=== PATIENT | male | born 1985 | race Caucasian/White ===

== ENCOUNTER 2019-09-24 02:29 | Emergency (ER) | payer SELFPAY ==
[2019-09-24 02:41] VITALS: BP 141/108; PULSE 100; RESP 19; TEMP 36.9; O2SAT 97; BMI 26.4
--- NOTE | 2019-09-24 02:46 | PC.NURSE ---
Reports pain in lower r flank started suddenly, states pain wraps around to front and into testicle. has had 3 episodes of emesis since start of pain. Denies difficulty urinating.
--- NOTE | 2019-09-24 02:57 | DI.CT.S_ITS ---
PROCEDURE: CT KIDNEY URETER BLADDER (KUB) INDICATIONS: right flank pain TECHNIQUE: Noncontrast 5 mm thick sections acquired from the diaphragms to the symphysis. 5 mm thick coronal and sagittal reformats were then performed. For radiation dose reduction, the following was used: automated exposure control, adjustment of mA and/or kV according to patient size. COMPARISON: None. FINDINGS: Image quality: Excellent. Lung bases: Lung bases are clear. Heart size is normal. Urinary system: Both kidneys are normal in size. Right UPJ obstructing calculus measuring 1.3 cm, (2/44). Mild to moderate right-sided hydronephrosis. A few additional nonobstructing punctate calculi bilaterally. Both ureters otherwise appear non-dilated throughout their expected courses. Bladder wall thickness is normal; no calcified bladder stones. Other solid organs: Liver is normal in size. Gallbladder is unremarkable. Pancreas is normal in contours. Spleen is normal in size. No adrenal nodules. Peritoneum and bowel: Unenhanced bowel loops demonstrate normal wall thickness and caliber. Appendix is normal. No free fluid or air. Nodes and vessels: No retroperitoneal or mesenteric adenopathy by size criteria. Aorta and inferior vena cava are normal in caliber. Abdominal wall: No ventral hernias. Pelvis: No free pelvic fluid. No inguinal hernias or adenopathy. Bones: No suspicious bony lesions. Bilateral L5 pars defect with several millimeters of anterolisthesis of L5 on S1. No vertebral body compression fractures. IMPRESSION: 1. Obstructing calculus at the right ureteropelvic junction. Mild to moderate right-sided hydronephrosis. 2. A few additional nonobstructing punctate kidney stones. This report is concordant with the overnight preliminary interpretation. Dictated by: Yuniel Stuart M.D. on 09/24/2019 at 8:11 Approved by: Yuniel Stuart M.D. on 09/24/2019 at 8:16
[2019-09-24] MEDS: ONDANSETRON 4 MG/2 ML INJ IV ×2 (03:05→03:45)
[2019-09-24] MEDS: SODIUM CHLORIDE 0.9% 1,000 ML 1000 ML IV (03:05)
[2019-09-24] MEDS: KETOROLAC 60 MG/2 ML VIAL 30 MG IV (03:05)
[2019-09-24 03:06] LABS: Add Manual Diff / Slide Review NO; Basophils Absolute Auto 0 /uL (0-100); Basophils Percent Auto 0.4 % (0-2); Eosinophils Absolute Auto 0 /uL (0-450); Eosinophils Percent Auto 0.5 % (2-4); Hematocrit 46.3 % (41-53); Hemoglobin 15.6 g/dL (13.5-17.5); Lymphocytes Absolute Auto 3400 /uL (1100-4500); Lymphocytes Percent Auto 46.7 % (25-40); Mean Corpuscular HGB Conc 33.6 % (30-36); Mean Corpuscular Hemoglobin 27.6 PG (26-34); Mean Corpuscular Volume 82.1 fL (80-100); Monocytes Absolute Auto 1000 /uL (0-900); Monocytes Percent Auto 13.3 % (3-14); Neutrophils Absolute Auto 2900 /uL (1500-7000); Neutrophils Percent Auto 39.1 % (50-75); Platelet Count 198 X10^3/uL (150-400); Red Blood Cell Count 5.64 X10^6/uL (4.5-5.9); Red Cell Distribution Width 12.5 % (11.6-14.8); White Blood Cell Count 7.3 X10^3/uL (4.5-11.0)
[2019-09-24 03:11] LABS: Alanine Aminotransferase 29 IU/L (<50); Albumin 4.3 g/dL (3.5-5.0); Albumin Globulin Ratio 1.4 (1.0-2.8); Alkaline Phosphatase 64 U/L (38-126); Aspartate Aminotransferase 22 IU/L (17-59); BUN Creatinine Ratio 16.3 (6-22); Bilirubin Total 0.7 mg/dL (0.2-1.3); Blood Urea Nitrogen 13 mg/dL (9-20); Calcium 9.2 mg/dL (8.4-10.2); Carbon Dioxide 28 mmol/L (22-32); Chloride 101 mmol/L (98-107); Estimated Glomerular Filt Rate > 60.0 mL/min (>60); Globulin 3.1 g/dL (1.7-4.1); Glucose 121 mg/dL (70-100); HEMOLYSIS < 15 (0-50); Lipase 96 U/L (23-300); Potassium 3.7 mmol/L (3.4-5.1); Sodium 138 mmol/L (137-145); Total Protein 7.4 g/dL (6.3-8.2)
--- NOTE | 2019-09-24 03:22 | ED.MALEGU ---
HPI - Male Genitourinary General Chief complaint: Urogenital-Male Stated complaint: severe pain in lower right back, testicle pain Time Seen by Provider: 09/24/19 02:45 Source: patient Mode of arrival: Ambulatory History of Present Illness HPI Narrative: Patient is a 34-year-old male who presents with sudden onset of right-sided flank pain radiating to his groin. He said it will come from asleep. It is relatively constant but does get significantly worse. He denies any blood in his urine. He feels nauseous he has vomited a few times. No prior history of kidney stone. He was doing well earlier today he says this came on unexpectedly. No trauma or injury to testicle. He really is complaining of right-sided flank pain. MD Complaint: testicle pain (Right side) Location: right flank Related Data Previous Rx's Medication Instructions Recorded ciprofloxacin HCl [Cipro] 500 mg PO Q12H #14 tab 09/24/19 hydrocodone-acetaminophen [[place]] 1 tab PO Q4H PRN #10 tab 09/24/19 ondansetron 4 mg PO Q8H PRN #10 tab 09/24/19 Allergies Allergy/AdvReac Type Severity Reaction Status Date / Time Penicillins Allergy Verified 09/24/19 03:06 Sulfa (Sulfonamide Allergy Verified 09/24/19 03:06 Antibiotics) Review of Systems Review of Systems Narrative: GENERAL: Denies chills, fatigue, malaise, fever, sweats, travel HEENT: Denies sinus pain, ear pain, sore throat, difficulty swallowing, neck pain RESPIRATORY: Denies dyspnea, cough, wheezing, hemoptysis, sputum. CARDIOVASCULAR: Denies chest pain, palpitations, orthopnea, edema GASTROINTESTINAL: Denies nausea, vomiting, abdominal pain, diarrhea, constipation, melena. : See HPI MUSCULOSKELETAL: Denies weakness, joint pain, or bony pain SKIN: No rash, no erythema, no pruritus NEUROLOGIC: Denies weakness, dizziness, headache, numbness, change in speech, confusion PSYCHIATRIC: No concerning psychosocial issues. 12 point review of systems is negative except for those stated above and HPI Patient History Medical History Patient denies medical problems (Acute) Social History Smoking Status: Never smoker Substance Use Type: does not use Exam Initial Vital Signs Initial Vital Signs: Vital Signs Temperature 98.4 F 09/24/19 02:41 Pulse Rate 100 H 09/24/19 02:41 Respiratory Rate 19 09/24/19 02:41 Blood Pressure 141/108 H 09/24/19 02:41 Pulse Oximetry 97 09/24/19 02:41 GENERAL: Well-appearing, well-nourished and in no acute distress. HEENT: Head atraumatic,EOMI, pupils reactive, face symmetric, moist mucous membranes CARDIOVASCULAR: Regular rate and rhythm without murmurs, rubs or gallops. RESPIRATORY: Breath sounds equal bilaterally, no wheezes rales or rhonchi. ABDOMEN: Soft, nontender. Normoactive bowel sounds all 4 quadrants. No guarding or rebound. : Right CVA tenderness EXTREMITIES: Normal range of motion, no clubbing or edema. Neurovascularly intact NEUROLOGICAL: Alert and oriented x4.Normal gait and speech. Cranial nerves II through XII grossly intact. SKIN: Warm, dry, no laceration, no petechiae, no rashes or lesions. Course Orders Ordered: ED Orders 09/24/19 02:44 Complete Blood Count AUTO DIFF Stat Comprehensive Metabolic Panel Stat Lipase Stat 09/24/19 02:57 CT kidney ureter bladder (KUB) Stat 09/24/19 05:45 Urinalysis and Microscopic Stat Urine Culture Stat Sodium Chloride (Normal Saline 0.9%) 1,000 mls @ 1,000 mls/hr IV CONT JOSELYN Last Infusion: 09/24/19 04:10 Dose: 0 mls/hr Documented by: Admin: 09/24/19 03:05 Dose: 1,000 mls/hr Documented by: ANEESH Discontinued Medications Hydromorphone HCl (Dilaudid) 1 mg IV NOW ONE Stop: 09/24/19 03:35 Last Admin: 09/24/19 03:45 Dose: 1 mg Documented by: STACIE Hydromorphone HCl (Dilaudid) 0.5 mg IV NOW ONE Stop: 09/24/19 04:49 Last Admin: 09/24/19 04:52 Dose: 0.5 mg Documented by: STACIE Lidocaine HCl 6.5 ml/ Sodium (Chloride) 56.5 mls @ 339 mls/hr IV NOW ONE Stop: 09/24/19 03:30 Last Infusion: 09/24/19 04:10 Dose: 0 mls/hr Documented by: Admin: 09/24/19 03:45 Dose: 339 mls/hr Documented by: STACIE Ketorolac Tromethamine (Toradol) 30 mg IV NOW ONE Stop: 09/24/19 02:58 Last Admin: 09/24/19 03:05 Dose: 30 mg Documented by: ANEESH Ondansetron HCl (Zofran) 4 mg IV NOW ONE Stop: 09/24/19 02:58 Last Admin: 09/24/19 03:05 Dose: 4 mg Documented by: ANEESH Ondansetron HCl (Zofran) 4 mg IV NOW ONE Stop: 09/24/19 03:30 Last Admin: 09/24/19 03:45 Dose: 4 mg Documented by: STACIE Consultations Consultation #1: Emily GUILLEN chemical radiation technician for Urology at [place]' updated patient's symptoms test results. Agrees with outpatient follow-up and pain control at this time. She is given patient's information and contact his info. CT images have been pushed in patient has been given a disc of CT. Time: 04:40 Vital Signs Vital signs: Vital Signs - 8 hr 09/24/19 02:41 Temperature 98.4 F Pulse Rate 100 H Respiratory Rate 19 Blood Pressure 141/108 H Pulse Oximetry 97 MDM - Male Genitourinary Lab Data Attestation: I reviewed the patient's lab results. Result diagrams: 09/24/19 02:44 09/24/19 02:44 Labs: Lab Results 09/24/19 09/24/19 09/24/19 Range/Units 02:44 02:44 05:45 WBC 7.3 (4.5-11.0) X10^3/uL RBC 5.64 (4.5-5.9) X10^6/uL Hgb 15.6 (13.5-17.5) g/dL Hct 46.3 (41-53) % MCV 82.1 (80-100) fL MCH 27.6 (26-34) PG MCHC 33.6 (30-36) % RDW 12.5 (11.6-14.8) % Plt Count 198 (150-400) X10^3/uL Neut % (Auto) 39.1 L (50-75) % Lymph % (Auto) 46.7 H (25-40) % [place] % (Auto) 13.3 (3-14) % Eos % (Auto) 0.5 L (2-4) % Baso % (Auto) 0.4 (0-2) % Neut # (Auto) 2900 (0957-4502) /uL Lymph # (Auto) 3400 (1642-7823) /uL [place] # (Auto) 1000 H (0-900) /uL Eos # (Auto) 0 (0-450) /uL Baso # (Auto) 0 (0-100) /uL Sodium 138 (137-145) mmol/L Potassium 3.7 (3.4-5.1) mmol/L Chloride 101 (98-107) mmol/L Carbon Dioxide 28 (22-32) mmol/L BUN 13 (9-20) mg/dL Creatinine 0.80 (0.66-1.25) mg/dL Estimated GFR > 60.0 (>60) mL/min BUN/Creatinine Ratio 16.3 (6-22) Glucose 121 H (70-100) mg/dL Calcium 9.2 (8.4-10.2) mg/dL Total Bilirubin 0.7 (0.2-1.3) mg/dL AST 22 (17-59) IU/L ALT 29 (<50) IU/L Alkaline Phosphatase 64 (38-126) U/L Total Protein 7.4 (6.3-8.2) g/dL Albumin 4.3 (3.5-5.0) g/dL Globulin 3.1 (1.7-4.1) g/dL Albumin/Globulin Ratio 1.4 (1.0-2.8) Lipase 96 (23-300) U/L Urine Color Dark yellow Urine Appearance Slightly cloudy Urine pH 6.5 (4.5-8.0) Ur Specific [place] 1.020 (1.000-1.035) Urine Protein 2+ H (Negative) Urine Glucose (UA) Negative (Negative) g/dL Urine Ketones Trace H (NEGATIVE) Urine Occult Blood 3+ H (Negative) Urine Nitrate Negative (Negative) Urine Bilirubin Negative (NEGATIVE) Urine Urobilinogen 0.2 (0.2) E.U./dL Ur Leukocyte Esterase Negative (NEGATIVE) Urine RBC 30-100/hpf H (0-5/HPF) Urine WBC 1-5/hpf (0-5/HPF) Ur Squamous Epith Cells 0-1 /hpf (0-5/HPF) Urine Bacteria Moderate (10-30) H (None) Urine Mucus 2+ H (Negative) Ur Culture Indicated? Specimen cultured Imaging Data CT scan - abdomen: Radiologist's impression: CT preliminary report right obstructive uropathy secondary to 1.3 cm UPJ calculus. MDM Narrative Medical decision making narrative: I have called and spoken with Urology at [facility]. Patient shows no sign of acute injury creatinine is within normal limits. Urine does have some bacteria. Will put him on some antibiotics and pain control. His pain is actually much better after lidocaine and Dilaudid. I discussed all findings with the patient, Education has been performed regarding treatment plan, diagnosis, warning signs and symptoms and all concerns have been addressed. Verbally agree with and understood all of the above. Discharge Plan Departure Patient Disposition: Home Clinical Impression: Kidney calculi, Acute UTI Instructions: DI for Kidney Stones Activity Restrictions/Additional Instructions: *Increase fluid intake * I have called and spoken to [facility] they have been given your information. I expect that they call you to date to schedule follow-up appointment next week. Strain urine, try to catch stone -If you should have fever, or pain is uncontrolled with medication at home or any other concerning symptoms return to ER for further evaluation MEDICATIONS Take Motrin 800 mg every 8 hours as needed for pain Take [place] every 6 hours if needed for severe pain Take Zofran every 4-6 hours if needed for nausea Take Keflex 500 mg 3 times a day for 7 I spoke with nhung GUILLEN in the ED CONTROLLED SUBSTANCE DISCHARGE (Narcotoic/benzodiazepine) 1. You have been prescribed narcotic medications, it does have acetaminophen/Tylenol/paracetamol in it so do not take extra Tylenol or Tylenol containing products 2. Please understand that we cannot provide further refills of narcotics, benzodiazepines or controlled substances through the ED and her pain management will need to be through your provider. 3. While on these medications you cannot drive or operate heavy machinery. 4. You cannot sign legal documents or perform any duties such as this. 5. As long as you're taking opiate pain medications he should also be taking a stool softener such as Colace, Dulcolax, MiraLAX or prune juice, to help avoid constipation. Prescriptions: New hydrocodone-acetaminophen [[place]] 5-325 mg tablet 1 tab PO Q4H PRN (Reason: pain) Qty: 10 RF: 0 ondansetron 4 mg tablet,disintegrating 4 mg PO Q8H PRN (Reason: nausea and vomiting) Qty: 10 RF: 0 ciprofloxacin HCl [Cipro] 500 mg tablet 500 mg PO Q12H Qty: 14 RF: 0 Referrals: [facility] [Provider Group]
[2019-09-24] MEDS: HYDROMORPHONE 1 MG INJ IV (03:45)
[2019-09-24] MEDS: LIDOCAINE 2% 6.5 ML in SODIUM CHLORIDE 0.9% 50 ML 339 ML IV (03:45)
[2019-09-24] MEDS: HYDROMORPHONE 0.5 MG INJ IV (04:52)
[2019-09-24 05:53] LABS: Appearance Urine UA Slightly Cloudy; Bilirubin Urine UA NEGATIVE (NEGATIVE); Color Urine UA Dark Yellow; Glucose Urine UA NEGATIVE (Negative); Ketones Urine UA TRACE (NEGATIVE); Leukocyte Esterase Urine UA NEGATIVE (NEGATIVE); Nitrite Urine UA NEGATIVE (Negative); Occult Blood Urine UA 3+ (Negative); Protein Urine UA 2+ (Negative); RBC Urine 30-100/HPF (0-5/HPF); Urobilinogen Urine UA 0.2 E.U./dL (0.2); pH Urine UA 6.5 (4.5-8.0)
[2019-09-24 05:54] LABS: Bacteria Urine Moderate (10-30); Squamous Epithelial Cell Urine 0-1 /HPF (0-5/HPF); WBC Urine 1-5/HPF (0-5/HPF)
[2019-09-24 05:55] LABS: Culture Indicated Urine Specimen Cultured; Mucus Urine 2+ (Negative)
[2019-09-24 08:24] VITALS: BP 124/79; PULSE 61; RESP 12; TEMP 36.9; O2SAT 98
== END 2019-09-24 08:27 | disposition home or self-care (01) ==
PROVIDERS: Emergency Provider Emergency Medicine
DX: N20.0 Calculus of kidney (principal); N39.0 Urinary tract infection, site not specified
CPT/HCPCS: 36415; 74176; 80053; 81001; 83690; 85025; 87086; 96361; 96365; 96375; 96376; 99283; 99284; J1170; J1885; J2405

== ENCOUNTER 2019-12-01 13:19 | Emergency (ER) | payer OTHER, SELFPAY ==
[2019-12-01 13:23] VITALS: BP 133/82; PULSE 96; RESP 20; TEMP 35.7; O2SAT 99
[2019-12-01] MEDS: ONDANSETRON 4 MG/2 ML INJ IV ×2 (14:10→14:57)
[2019-12-01] MEDS: KETOROLAC 60 MG/2 ML VIAL 30 MG IV (14:10)
[2019-12-01] MEDS: SODIUM CHLORIDE 0.9% 1,000 ML 1000 ML IV (14:11)
[2019-12-01 14:16] LABS: Add Manual Diff / Slide Review NO; Basophils Absolute Auto 100 /uL (0-100); Basophils Percent Auto 0.5 % (0-2); Eosinophils Absolute Auto 0 /uL (0-450); Hemoglobin 15.5 g/dL (13.5-17.5); Lymphocytes Absolute Auto 1100 /uL (1100-4500); Lymphocytes Percent Auto 6.1 % (25-40); Mean Corpuscular HGB Conc 34.5 % (30-36); Mean Corpuscular Hemoglobin 27.8 PG (26-34); Mean Corpuscular Volume 80.6 fL (80-100); Monocytes Absolute Auto 600 /uL (0-900); Monocytes Percent Auto 3.7 % (3-14); Neutrophils Absolute Auto 15600 /uL (1500-7000); Neutrophils Percent Auto 89.7 % (50-75); Platelet Count 230 X10^3/uL (150-400); Red Blood Cell Count 5.58 X10^6/uL (4.5-5.9); Red Cell Distribution Width 13.2 % (11.6-14.8); White Blood Cell Count 17.4 X10^3/uL (4.5-11.0)
--- NOTE | 2019-12-01 14:24 | PC.NURSE ---
Called pt from at 1400. Pt states he is unable to walk. I went to get pt a w/c and pt and visitor walk briskly past me and into room. Pt states he hurts really bad and needs something now. loudly dry heaving. I explain to pt that I need to start and IV to get him medications. In the process of me doing this, pt request blankets and repeatedly requests pain medications. I remind pt frequently that in order for me to help him he needs to let me start the IV. I prepare to start IV and pt request a different spot. Other spots look used already from procedure. This RN requests pt let her do the job due to my top priority is getting symptoms under control. Pt verbalizes understanding and allows IV start while another RN grabs medications.
[2019-12-01 14:25] LABS: BUN Creatinine Ratio 14.5 (6-22); Blood Urea Nitrogen 16 mg/dL (9-20); Calcium 9.6 mg/dL (8.4-10.2); Carbon Dioxide 28 mmol/L (22-32); Chloride 104 mmol/L (98-107); Estimated Glomerular Filt Rate > 60.0 mL/min (>60); Glucose 155 mg/dL (70-100); HEMOLYSIS < 15 (0-50); Potassium 3.6 mmol/L (3.4-5.1); Sodium 139 mmol/L (137-145)
--- NOTE | 2019-12-01 14:44 | ED.MALEGU ---
HPI - Male Genitourinary General Chief complaint: Urogenital-Male Stated complaint: KIDNEY STONE BLASTED,NAUSEA/VOMITING/PAIN Time Seen by Provider: 12/01/19 14:28 Source: patient Mode of arrival: Ambulatory Limitations: no limitations History of Present Illness HPI Narrative: The patient is a 34-year-old male who presents to the emergency department with severe right-sided flank pain. Earlier today the patient had a lithotripsy performed by Dr. Barth from [facility] in [place]. Initially the patient did not have any pain or discomfort. However 1 hour after the lithotripsy during the ride home in the car he developed pain and discomfort and the right side which has become progressively worse. He was discharged home without a stent or pain medications. He has been extremely nauseous with vomiting. He states that the pain is 9 to 10/10 in intensity. He denies any fever but has had chills and sweats with the pain and discomfort. He denies any headache shortness of breath cough chest pain palpitations dizziness. He complains of backache with the associated pain and discomfort he has had intense nausea and vomiting without coffee-ground emesis hematemesis. He has had no diarrhea or change in his bowel habits. He has not noted any gross blood in his urine just that he has been passing stones and the urine has been cloudy. Related Data Previous Rx's Medication Instructions Recorded ciprofloxacin HCl [Cipro] 500 mg PO Q12H #14 tab 09/24/19 hydrocodone-acetaminophen [[place]] 1 tab PO Q4H PRN #10 tab 09/24/19 ondansetron 4 mg PO Q8H PRN #10 tab 09/24/19 clarithromycin 500 mg tablet 500 mg PO BID #14 tab 11/12/19 Allergies Allergy/AdvReac Type Severity Reaction Status Date / Time Penicillins Allergy Verified 11/12/19 14:44 Sulfa (Sulfonamide Allergy Verified 11/12/19 14:44 Antibiotics) Review of Systems Review of Systems Narrative: All review of systems were negative except for those mentioned in the history of present illness. Patient History Medical History (Updated 12/01/19 @ 14:46 by Robin Pisano MD) Patient denies medical problems (Acute) Surgical History (Updated 11/20/19 @ 22:22 by Alyse Cope) Anesthesia (Resolved) History of oral surgery (Resolved) Social History (Updated 12/01/19 @ 19:40 by Robin Pisano MD) other: The patient denies smoking cigarettes drinking alcohol or using any drugs. Smoking Status: Never smoker Smoking Status: Never smoker Substance Use Type: does not use Exam Narrative Exam Narrative: PHYSICAL EXAM: CONSTITUTIONAL: Awake, Alert, Oriented, Coherent, Cooperative very uncomfortable in severe distress. HEAD: AT/NC EENT: PERRL, FROM of eyes, No epistaxis or nasal drainage Oral mucosa is moist and pink, posterior pharynx is without erythema or exudate. NECK: Supple,, Trachea is midline without stridor, SPINE: No gross deformity, no palpable tenderness of the cervical, thoracic, lumbar or sacral spine. Mild right costovertebral angle tenderness. THORAX: No deformity, retractions, chest wall tenderness, subcutaneous air or crepitice. LUNGS: Clear with symmetrical breath sounds without respiratory distress HEART: Normal heart tones, regular rhythm and rate without murmur. ABDOMEN: Soft, mild tenderness in the right. EXTREMITIES: No edema, cyanosis, deformity or tenderness. SKIN: No rash, bruising, NEURO: Awake, alert, oriented, conversive, cranial nerves II-XII are symmetrical and normal, moves all 4 extremities and is ambulatory Initial Vital Signs Initial Vital Signs: Vital Signs Temperature 96.3 F L 12/01/19 13:23 Pulse Rate 96 H 12/01/19 13:23 Respiratory Rate 20 12/01/19 13:23 Blood Pressure 133/82 12/01/19 13:23 Pulse Oximetry 99 12/01/19 13:23 Course Orders Ordered: ED Orders 12/01/19 14:05 Basic Metabolic Panel Stat Complete Blood Count AUTO DIFF Stat 12/01/19 14:22 UA Complete [Urinalysis and Microscopic] Stat Urine Culture Stat 12/01/19 18:02 CT kidney ureter bladder (KUB) Stat Discontinued Medications Sodium Chloride (Normal Saline 0.9%) 1,000 mls @ 1,000 mls/hr IV BOLUS ONE Stop: 12/01/19 14:33 Last Infusion: 12/01/19 14:58 Dose: 0 mls/hr Documented by: Admin: 12/01/19 14:11 Dose: 1,000 mls/hr Documented by: ANEESH Ketorolac Tromethamine (Toradol) 30 mg IV NOW ONE Stop: 12/01/19 13:35 Last Admin: 12/01/19 14:48 Dose: Not Given Documented by: RUFINO Ketorolac Tromethamine (Toradol) 30 mg IV NOW ONE Stop: 12/01/19 14:07 Last Admin: 12/01/19 14:10 Dose: 30 mg Documented by: ANEESH Morphine Sulfate (Morphine Sulfate) 4 mg IV NOW ONE Stop: 12/01/19 14:37 Last Admin: 12/01/19 14:48 Dose: Not Given Documented by: RUFINO Morphine Sulfate (Morphine) 4 mg IV NOW ONE Stop: 12/01/19 14:49 Last Admin: 12/01/19 14:57 Dose: 4 mg Documented by: RUFINO Morphine Sulfate (Morphine) 4 mg IV NOW ONE Stop: 12/01/19 17:24 Last Admin: 12/01/19 17:27 Dose: 4 mg Documented by: ANEESH Ondansetron HCl (Zofran) 4 mg IV NOW ONE Stop: 12/01/19 13:35 Last Admin: 12/01/19 14:10 Dose: 4 mg Documented by: ANEESH Ondansetron HCl (Zofran) 4 mg IV NOW ONE Stop: 12/01/19 14:37 Last Admin: 12/01/19 14:57 Dose: 4 mg Documented by: RUFINO Oxycodone/Acetaminophen (Percocet 5/325) 2 tab PO NOW ONE Stop: 12/01/19 16:29 Last Admin: 12/01/19 16:31 Dose: 2 tab Documented by: ANEESH Reevaluation(s) Reevaluation #1: The patient complained of severe pain after 4 mg of morphine sulfate and 10 mg of Percocet. His pain was 6 to 7/10 in intensity he was administered another dose of morphine sulfate [address] Barth in [place] was called Time: 17:22 Reevaluation #2: I discussed the patient with Dr. Ayala to transfer the patient to [facility] however he wanted a CT scan performed before accepting the patient in transfer. Time: 18:00 Reevaluation #3: The radiologist called and stated the patient had severe right-sided hydronephrosis with perinephric fat stranding. He had an obstruction with impacted stones at the ureterovesical junction. The radiologist stated that the patient will need a stent. Dr. Barth was contacted at 6:57 p.m. who accepted the patient being transferred back to [facility] in telling him. He recommended that the patient be transferred to the emergency department and then he would take the patient to surgery to place a stent. His plan is to discharge the patient after stenting. I spoke with Dr. Antonio in the emergency department at [facility] him and he accepted the patient in being transferred Time: 18:10 Vital Signs Vital signs: Vital Signs - 8 hr 12/01/19 13:23 12/01/19 15:07 12/01/19 15:58 Temperature 96.3 F L Pulse Rate 96 H 95 H 85 Respiratory Rate 20 21 16 Blood Pressure 133/82 Blood Pressure [Left Arm] 130/85 131/85 Pulse Oximetry 99 96 98 12/01/19 16:05 12/01/19 19:00 Temperature Pulse Rate 95 H 91 H Respiratory Rate 18 Blood Pressure Blood Pressure [Left Arm] 132/8 L 129/82 Pulse Oximetry 98 99 MDM - Male Genitourinary Lab Data Result diagrams: 12/01/19 14:05 12/01/19 14:05 Labs: Lab Results 12/01/19 12/01/19 12/01/19 Range/Units 14:05 14:05 14:22 WBC 17.4 H (4.5-11.0) X10^3/uL RBC 5.58 (4.5-5.9) X10^6/uL Hgb 15.5 (13.5-17.5) g/dL Hct 45.0 (41-53) % MCV 80.6 (80-100) fL MCH 27.8 (26-34) PG MCHC 34.5 (30-36) % RDW 13.2 (11.6-14.8) % Plt Count 230 (150-400) X10^3/uL Neut % (Auto) 89.7 H (50-75) % Lymph % (Auto) 6.1 L (25-40) % [place] % (Auto) 3.7 (3-14) % Eos % (Auto) 0.0 L (2-4) % Baso % (Auto) 0.5 (0-2) % Neut # (Auto) 09590 H (3713-0428) /uL Lymph # (Auto) 1100 (2687-5969) /uL [place] # (Auto) 600 (0-900) /uL Eos # (Auto) 0 (0-450) /uL Baso # (Auto) 100 (0-100) /uL Sodium 139 (137-145) mmol/L Potassium 3.6 (3.4-5.1) mmol/L Chloride 104 (98-107) mmol/L Carbon Dioxide 28 (22-32) mmol/L BUN 16 (9-20) mg/dL Creatinine 1.10 (0.66-1.25) mg/dL Estimated GFR > 60.0 (>60) mL/min BUN/Creatinine Ratio 14.5 (6-22) Glucose 155 H (70-100) mg/dL Calcium 9.6 (8.4-10.2) mg/dL Urine Color Brown Urine Appearance Sl cloudy Urine pH 6.5 (4.5-8.0) Ur Specific [place] 1.020 (1.000-1.035) Urine Protein 1+ H (Negative) Urine Glucose (UA) Negative (Negative) g/dL Urine Ketones Negative (NEGATIVE) Urine Occult Blood 3+ H (Negative) Urine Nitrate Negative (Negative) Urine Bilirubin Negative (NEGATIVE) Urine Urobilinogen 0.2 (0.2) E.U./dL Ur Leukocyte Esterase 1+ H (NEGATIVE) Urine RBC >100/hpf (0-5/HPF) Urine WBC 1-5/hpf (0-5/HPF) Urine Bacteria Moderate (10-30) H (None) Ur Culture Indicated? Specimen cultured Discharge Plan Departure Clinical Impression: Nephrolithiasis, Renal colic Prescriptions: No Action clarithromycin 500 mg tablet 500 mg PO BID Qty: 14 RF: 0 hydrocodone-acetaminophen [[place]] 5-325 mg tablet 1 tab PO Q4H PRN (Reason: pain) Qty: 10 RF: 0 ondansetron 4 mg tablet,disintegrating 4 mg PO Q8H PRN (Reason: nausea and vomiting) Qty: 10 RF: 0 ciprofloxacin HCl [Cipro] 500 mg tablet 500 mg PO Q12H Qty: 14 RF: 0 Referrals: Serge Jama, DO [Primary Care Provider] -
[2019-12-01] MEDS: MORPHINE 4 MG/ML INJ IV ×2 (14:57→17:27)
[2019-12-01 15:07] VITALS: BP 130/85; PULSE 95; RESP 21; O2SAT 96
[2019-12-01 15:35] LABS: Appearance Urine UA SL CLOUDY; Bilirubin Urine UA NEGATIVE (NEGATIVE); Glucose Urine UA NEGATIVE (Negative); Ketones Urine UA NEGATIVE (NEGATIVE); Leukocyte Esterase Urine UA 1+ (NEGATIVE); Nitrite Urine UA NEGATIVE (Negative); Occult Blood Urine UA 3+ (Negative); Protein Urine UA 1+ (Negative); Urobilinogen Urine UA 0.2 E.U./dL (0.2); pH Urine UA 6.5 (4.5-8.0)
[2019-12-01 15:52] LABS: Color Urine UA BROWN; RBC Urine >100/HPF (0-5/HPF); WBC Urine 1-5/HPF (0-5/HPF)
[2019-12-01 15:53] LABS: Bacteria Urine Moderate (10-30); Culture Indicated Urine Specimen Cultured
[2019-12-01 15:58] VITALS: BP 131/85; PULSE 85; RESP 16; O2SAT 98
[2019-12-01 16:05] VITALS: BP 132/8; PULSE 95; RESP 18; O2SAT 98
[2019-12-01] MEDS: OXYCODONE/ACETAMINOPHEN 5/325 TABLET 2 TAB PO (16:31)
--- NOTE | 2019-12-01 18:02 | DI.CT.S_ITS ---
PROCEDURE: CT KIDNEY URETER BLADDER (KUB) INDICATIONS: Lithotrypsy today severe pain r/o obstruction per urologist TECHNIQUE: Noncontrast 5 mm thick sections acquired from the diaphragms to the symphysis. 5 mm thick coronal and sagittal reformats were then performed. For radiation dose reduction, the following was used: automated exposure control, adjustment of mA and/or kV according to patient size. COMPARISON: [facility], CT, CT KIDNEY URETER BLADDER (KUB), 09/24/2019, 3:05. FINDINGS: Image quality: Excellent. Lung bases: Patchy airspace opacities are visualized throughout the right lower lobe which are new when compared with the prior CT dated 09/24/19. The left lung base is clear. No pleural effusion or pneumothorax. Urinary system: There is severe right hydronephrosis and marked perinephric fat stranding. Multiple subcentimeter calculi or layered within the right renal pelvis. The right kidney is mildly dilated throughout its course. Multiple obstructing calculi are present within the distal right ureter extending to the right ureterovesicular junction. The largest in the superior Stone appears to measure approximately 5 mm in diameter. The left kidney is normal size. Nonobstructing 4 mm calculi are present. No left hydronephrosis, hydroureter, or ureterolithiasis. Bladder is partially fluid-filled and thin-walled. No bladder calculi visualized. Other solid organs: Liver is normal in size. Gallbladder is unremarkable. Pancreas is normal in contours. Spleen is normal in size. No adrenal nodules. Peritoneum and bowel: Unenhanced bowel loops demonstrate normal wall thickness and caliber. The appendix is thick walled. No free fluid or air. Nodes and vessels: No retroperitoneal or mesenteric adenopathy by size criteria. Aorta and inferior vena cava are normal in caliber. Abdominal wall: No ventral hernias. Pelvis: No free pelvic fluid. No inguinal hernias or adenopathy. Bones: No suspicious bony lesions. No vertebral body compression fractures. There are minimally displaced bilateral pars interarticularis defects and grade I L5 on S1 anterolisthesis. IMPRESSION: 1. Right obstructive ureterolithiasis with severe right hydronephrosis and perinephric fat stranding suggesting calyceal rupture. Multiple subcentimeter calculi or layered within the distal ureter to the level of the UVJ. Urologic consultation recommended to evaluate for stent placement. 2. Nonobstructive right nephrolithiasis. 3. Normal appendix. These findings were discussed with Dr. Pisano at 6:49 PM on 12/01/19. Dictated by: Rachana Stanley M.D. on 12/01/2019 at 18:45 Approved by: Rachana Stanley M.D. on 12/01/2019 at 18:51
[2019-12-01 19:00] VITALS: BP 129/82; PULSE 91; O2SAT 99
--- NOTE | 2019-12-01 19:30 | PC.NURSE ---
I was informed by my foundation relations manager that pt may be transfered and going to surgery. I updated pt and pt became very agitated. exclaims that he doesn't know why we would be putting him through another procedure so soon and that he wants to know what the plan is and he wants a copy of his CT. I informed him that I would let Dr. Pisano come and answer his questions. and charge nurse notified.
--- NOTE | 2019-12-01 19:45 | PC.NURSE ---
Pt very upset that he has to return to [facility]. Would like an ambulance to bring him back. Told that was not possible. Aware of NPO status. Pt verbalized understanding and agreement w/ plan of care, transfer to [facility] for possible intervention.
== END 2019-12-01 20:21 | disposition short-term general hospital (02) ==
PROVIDERS: Emergency Provider Emergency Medicine; PCP Family Medicine
DX: N20.0 Calculus of kidney (principal); Z87.442 Personal history of urinary calculi; N23 Unspecified renal colic; N13.30 Unspecified hydronephrosis
CPT/HCPCS: 36415; 74176; 80048; 81001; 85025; 87086; 99284; 99285; J1885; J2270; J2405

== ENCOUNTER → 2023-10-10 12:37 | Outpatient (CLI) | payer SELFPAY ==
--- NOTE | 2023-10-10 12:39 | DI.RAD.S_ITS ---
PROCEDURE: XR HAND RT MIN 3V INDICATIONS: Right-hand injury TECHNIQUE: 3 views of the hand(s) acquired. COMPARISON: None. FINDINGS: Bones: Mild displaced and comminuted fracture of the proximal shaft of the 3rd metacarpal. Minimally displaced fracture at the base of the 4th metacarpal.. Carpal bones are normally aligned. No suspicious bony lesions. Soft tissues: No suspicious soft tissue calcifications. IMPRESSION: Fractures of the proximal 3rd and 4th metacarpals. Dictated by: Derik Colin M.D. on 10/10/2023 at 15:02 Approved by: Derik Colin M.D. on 10/10/2023 at 15:03
== END ==
PROVIDERS: PCP Family Medicine; Referring Provider Nurse Practitioner Family; Visit Provider Nurse Practitioner Family
DX: S62.322A Displaced fracture of shaft of third metacarpal bone, right hand, initial encounter for closed fracture (principal); S62.344A Nondisplaced fracture of base of fourth metacarpal bone, right hand, initial encounter for closed fracture; X58.XXXA Exposure to other specified factors, initial encounter
CPT/HCPCS: 73130